=== PATIENT | male | born 1955 | race Caucasian/White ===

== ENCOUNTER → 2018-11-02 | Outpatient (CLI) | payer OTHER | LOC: CIMAGING 14:49 | PROVIDERS: ATTEND Internal Medicine | DX: M17.0 Bilateral primary osteoarthritis of knee (principal); I10 Essential (primary) hypertension; R20.2 Paresthesia of skin; M25.571 Pain in right ankle and joints of right foot | CPT/HCPCS: 73560-PO; 73600-PO ==